=== PATIENT | female | born 1970 | race Caucasian/White ===

== ENCOUNTER 2017-07-09 17:36 | Emergency (ER) | payer OTHER ==
[~2017-07-09] VITALS: Ht 144.8 cm; Wt 60.8 kg
[2017-07-09 17:55] VITALS: Ht 144.8 cm; Wt 60.8 kg
[2017-07-09 19:34] VITALS: BP 141/71
== END 2017-07-09 19:34 | disposition home or self-care (01) ==
LOC: ED 17:36
DX: L02.211 Cutaneous abscess of abdominal wall (principal)

== ENCOUNTER 2017-07-11 08:57 | Emergency (ER) | payer OTHER ==
[~2017-07-11] VITALS: Ht 152.4 cm; Wt 59.9 kg
[2017-07-11 09:06] VITALS: Ht 152.4 cm; Wt 59.9 kg
[2017-07-11 09:56] VITALS: BP 112/60
== END 2017-07-11 09:56 | disposition home or self-care (01) ==
LOC: ED 08:57
DX: Z48.01 Encounter for change or removal of surgical wound dressing (principal); E11.9 Type 2 diabetes mellitus without complications; Z90.5 Acquired absence of kidney

== ENCOUNTER 2017-07-13 08:49 | Emergency (ER) | payer OTHER ==
[~2017-07-13] VITALS: Ht 152.4 cm; Wt 59.9 kg
[2017-07-13 08:56] VITALS: Ht 152.4 cm; Wt 59.9 kg
[2017-07-13 10:54] VITALS: BP 121/81
== END 2017-07-13 10:30 | disposition home or self-care (01) ==
LOC: ED 08:49
DX: Z48.01 Encounter for change or removal of surgical wound dressing (principal); E11.9 Type 2 diabetes mellitus without complications; R03.0 Elevated blood-pressure reading, without diagnosis of hypertension

== ENCOUNTER 2018-09-20 06:48 | Inpatient (IN) | payer OTHER ==
[~2018-09-20] VITALS: Ht 165.1 cm; Wt 58.1 kg
--- NOTE | 2018-09-20 07:12 | NUR ---
PT HERE BY SELF FOR ABD PAIN TO BUQ SINCE SUNDAY. PT STS SHE HAS HAD A FEVER AND COUGH SINCE TODAY. PT NOW REPORTS BODY ACHES ALSO SINCE SUNDAY. DENIES HAVING HAD THE FLU VACCINE.
--- NOTE | 2018-09-20 08:12 | NUR ---
FEVER DEC. PT GIVEN LIGHT SHEET. ON FULL MONTIORS. CALL LIGHT IN REACH.
[2018-09-20 08:21] LABS: BASOPHIL % 0.4 % (0-2); PLATELET COUNT 161 x10^3mcL (130-400); RED CELL DISTRIBUTION WIDTH 13.6 % (11.5-14.5)
[2018-09-20 08:36] LABS: CALCIUM 9.2 mg/dL (8.5-10.1); CARBON DIOXIDE 25.2 mmol/L (21-32); CHLORIDE SERUM 98 mmol/L (98-107); CREATININE SERUM 0.9 mg/dL (0.6-1.0); GFR1 > 60 mL/min; GLUCOSE SERUM 315 mg/dL (74-106); POTASSIUM SERUM 4.2 mmol/L (3.5-5.1); SODIUM SERUM 135 mmol/L (136-145)
[2018-09-20 08:41] LABS: ALBUMIN 3.4 g/dL (3.4-5.0); ALKALINE PHOSPHATASE 126 U/L (46-116); ALT/SGPT 19 U/L (14-59); AST/SGOT 8 U/L (15-37); BILIRUBIN TOTAL 0.57 mg/dL (0.20-1.00); TOTAL PROTEIN, SERUM 7.8 g/dL (6.4-8.2)
[2018-09-20 09:15] LABS: microscopic required? YES; urine erythrocyte 3+ (NEGATIVE)
--- NOTE | 2018-09-20 09:30 | NUR ---
SLEEPING, EASY TO AROUSE AWAKE; BREATHING UNLABORED
[2018-09-20] MEDS ORDERED: METFORMIN HYDR500 M1 PO (10:09)
--- NOTE | 2018-09-20 10:18 | NUR ---
REPORT GIVEN TO RAMA FELIX M/S LALITO
--- NOTE | 2018-09-20 10:31 | NUR ---
PATIENT ARRIVED VIA [facility] WITH 2 ER TECHS. PATIENT ABLE TO AMBULATE TO BED WITHOUT ASSITANCE. PATIENT GREENLAND[place] SPEAKING ONLY. ORIENTED TO ROOM AND CALL LIGHT SYSTEM.
[2018-09-20 11:02] VITALS: BP 115/70
[2018-09-20 11:56] VITALS: BP 120/68
--- NOTE | 2018-09-20 12:10 | NUR ---
BG RESULT WAS 248, 6 UNITS REGULAR INSULIN GIVEN PER SLIDING SCALE. COSIGNED BY STEPHEN STARKEY. PATIENT FAMILY AT BEDSIDE, PATIENT STATED SHE DOES NOT CHECK HER BLOOD SUGAR AT HOME. TAUGHT PATIENT AND FAMILY IMPORTANCE OF CHECKING SUGAR REGULARLY PART OF DM MANAGEMENT. PATIENT HAD NO COMPLLAINTS AT THIS TIME. CALL LIGHT WITHIN REACH
[2018-09-20 13:25] VITALS: Ht 165.1 cm; Wt 58.1 kg
--- NOTE | 2018-09-20 15:16 | NUR ---
PATIENT COMPLAINING OF NAUSEA AND FEELING COLD. PATIENT TEMP WAS 101.6. ADMINISTERED TYLENOL PRN FOR TEMP. SPOKE WITH ASSISTANT ATTORNEY GENERAL AND RECIVED ORDER FOR ZOFRAN IV.
--- NOTE | 2018-09-20 15:48 | NUR ---
PATIENT VOMITED X1 AFTER GETTING TYLENOL PO. RECEIVED ORDER FROM [employer]IRE [employer] CULTURE TEACHER FOR TORADOL 15MG IV
[2018-09-20 15:57] VITALS: BP 167/76
--- NOTE | 2018-09-20 16:03 | NUR ---
ADMINISTERED TORADOL PER ORDER. PATIENT NOT BEING COMPLIANT WITH COOLING MEASURES. CHARGE NURSE EXPLAINED TO PATIENT IN [place] BUT PATIENT CONTINUES TO NOT BE COMPLIANT. CALL LIGHT WITHIN REACH
--- NOTE | 2018-09-20 16:51 | NUR ---
BD RESULT WAS 233. 6UNITS INSULIN GIVEN PER SLIDING SCALE. PATIENT COMPLAINING OF FEELING HOT. NOW MORE COMPLIANT WITH COOLING MEASURES. PROVIDED ADDITIONAL COLD COMPRESSES TO CHEST AND HEAD. CALL LIGHT WITHIN REACH
--- NOTE | 2018-09-20 18:24 | NUR ---
PATIENT RESTING COMFORTABLY, TEMP RECHECKED AND FOUND TO BE 98.1. EXPLAINED TEMPURATURE AND INTERVENTIONS TO DAUGHTER. DAUGHTER TRANSLATED TO PATIENT IN [place]. CALL LIGHT WITHIN REACH
--- NOTE | 2018-09-20 19:05 | NUR ---
RECEIVED PT FROM PREVIOUS SHIFT NURSE. PT AOX4. DENIES LEIGH/DIZZINESS. SPEECH CLEAR, ANSWERS QUESTIONS APPROP. MED SURG PT, DENIES CP/PRESSURE. DENIES SOB/DIFFICULTY BREATHING, ON RA. IV TO RFA, INTACT AND PATENT. BED IN LOWEST POSITION. CALL LIGHT WITHIN REACH. WILL CONTINUE TO MONITOR.
[2018-09-20 20:48] VITALS: BP 102/56
[2018-09-20 20:50] VITALS: BP 102/56
--- NOTE | 2018-09-21 02:00 | NUR ---
PT RESTING IN BED. RR EVEN AND UNLABORED. IN NO ACUTE DISTRESS. CALL LIGHT WITHIN REACH. BED IN LOWEST POSITION. WILL CONTINUE TO MONITOR.
[2018-09-21 05:38] VITALS: BP 100/62
--- NOTE | 2018-09-21 07:27 | NUR ---
RECEIVED HAND OFF REPORT FROM YESENIA STARKEY. FOUND PATIENT RESTING IN BED WITH NO COMPLAINTS. ORIENTED TO CALL LIGHT SYSTEM, CALL LIGHT WITHIN REACH. WILL CONTINUE TO MONITOR
[2018-09-21 07:40] VITALS: BP 117/69
--- NOTE | 2018-09-21 09:46 | NUR ---
PATIENT COMPLAINING OF FEELING HOT, TEMP ORALLY WAS 101.0. TYLENOL PO ADMINSITERED, COLD COMPRESSES GIVEN TO PATIENT FOR HEAD AND ABD, BLANKET REMOVED AND ROOM AIR CON LOWERED. CALL LIGHT WITHIN REACH WILL REASSESS
--- NOTE | 2018-09-21 10:51 | NUR ---
REASSESSED PATIENT, TEMP NOW 99.7, PATIENT STATED SHE WISHES TO REST. CALL LIGHT WITHIN REACH, WILL CONTINUE TO MONITOR
--- NOTE | 2018-09-21 12:04 | NUR ---
PATIENT COMPLAINING OF PAIN TO HEAD AND ABD ADMINISTERD TORADOL AND ZOFRAN PER PRN ORDER. BG RESULT WAS 248, 6 UNITS REGULAR INSULIN ADMINSITERED PER SLIDING SCALE WITH GIANNI STARKEY COSIGN. PATIENT FAMILY NOW AT BEDSIDE, PATIENT HAD QUSTIONS ABOUT IMAGING FOR HER HEAD AND KIDNEY. WILL INFORM PEANUT PICKER OF PATIENT CONCERNS. CALL LIGHT WITHIN REACH FAMILY AT BEDSIDE
--- NOTE | 2018-09-21 13:19 | NUR ---
PATIENT PREPARED FOR DISCHARGE, ORDER PRESENT. PATIENT GIVEN COPY OF PRESCRIPTIONS, PHOTOS AND PAPERWORK. REVIED CHART WITH PATIENT AND DISCHARGE INSTRUCTION. ANSWERED QUESTIONS THAT AROSE, INFORMED OF FOLLOWUP APPOINTMENT. PATIENT RECEPTIVE OF TEACHING. NO ADDITIONAL QUESTIONS. IV FROM LEFT AC REMOVED, CATH INTACT. RON BE ESCORTED PATIENT OFF UNIT WITH ALL BELONGINGS
--- NOTE | 2018-09-21 14:30 | NUR ---
PATIENT SITTING AT SIDE OF BED WITH FAMILY AT [facility]. ADMNIISTERED MEDICATION PER MAR. INFORMED FAMILY THAT PATIENT CANNOT HAVE OUTSIDE FOOD WITHOUT PHYCISION ORDER AND PATIENT SUGARS HAVE BEEN TOO HIGH. PATIENT PROVIDED WITH SUGAR FREE JELLO. PATIENT HAD NO PAIN AT THSI TIME. CALL LIGHT WITHIN REACH
--- NOTE | 2018-09-21 17:04 | NUR ---
PATIENT RESTING AT THIS TIME. AWOKE TO NURSE ENTERING ROOM. BG RESULT WAS 288, 9UNITS INSULIN GIVEN PER SLIDING SCALE, JOSE ANTONIO STARKEY COSIGN. PATIENT HAD NOT COMPLAINTS. CALL LIGHT WITHIN REACH
[2018-09-21 18:05] VITALS: BP 134/68
--- NOTE | 2018-09-21 19:30 | NUR ---
PT RECEIVED A/O X4, [place] SPEAKING, ABLE TO MAKE NEEDS KNOWN. MED-SURG, DENIES CP/PRESSURE. PULSES PALPABLE, NO EDEMA PRESENT. BREATHING IS EVEN AND UNLABORED ON RA, NO RESP DISTRESS NOTED. ABD SOFT AND NONDISTENDED, DENIES N/V. VOIDS FREELY, BRP. AMBULATORY WITH STEADY GAIT. SKIN IS WARM AND DRY, INTACT. PT DENIES HAVING ANY PAIN AT THIS TIME. IVF INFUSING WELL TO RFA, SITE WNL. BED IN LOWEST SETTING, SIDE RAILS UP X2, CALL LIGHT WITHIN REACH. NO ACUTE DISTRESS NOTED. WILL CONT TO MONITOR.
[2018-09-21 20:46] VITALS: BP 122/66
--- NOTE | 2018-09-21 21:35 | NUR ---
PT C/O 11/19 HEADACHE, PRN TYLENOL GIVEN ORDERED. NO ACUTE DISTRESS NOTED. CALL LIGHT WITHIN REACH. WILL CONT TO MONITOR.
[2018-09-22 05:51] VITALS: BP 126/70
--- NOTE | 2018-09-22 06:34 | NUR ---
PT SLEPT WELL THROUGHOUT THE EVENING. BREATHING IS EVEN AND UNLABORED, NO RESP DISTRESS NOTED. PT DENIES HAVING ANY PAIN AT THIS TIME. IVF INFUSING WELL, SITE WNL. NO ACUTE CHANGES ENCOUNTERED DURING SHIFT. ALL NEEDS MET AND ANTICIPATED. CALL LIGHT WITHIN REACH. WILL ENDORSE CARE TO AM NURSE.
[2018-09-22 06:54] LABS: BASOPHIL % 0.5 % (0-2); PLATELET COUNT 151 x10^3mcL (130-400); RED CELL DISTRIBUTION WIDTH 13.1 % (11.5-14.5)
[2018-09-22 07:00] LABS: CALCIUM 8.2 mg/dL (8.5-10.1); CARBON DIOXIDE 25.8 mmol/L (21-32); CHLORIDE SERUM 106 mmol/L (98-107); CREATININE SERUM 0.7 mg/dL (0.6-1.0); GFR1 > 60 mL/min; GLUCOSE SERUM 226 mg/dL (74-106); POTASSIUM SERUM 4.3 mmol/L (3.5-5.1); SODIUM SERUM 141 mmol/L (136-145)
[2018-09-22 07:05] VITALS: BP 115/66
--- NOTE | 2018-09-22 07:17 | NUR ---
PT IN NO ACUTE DISTRESS. CONTINUITY OF CARE ENDORSED TO TIMOTHY STARKEY. ALL QUESTIONS AND CONCERNS ADDRESSED.
--- NOTE | 2018-09-22 07:30 | NUR ---
PT IS AAOX4. DENIES H/A AND DIZINESS. RESP EVEN AND UNLABORED. LUNG SOUNDS CTA THROUGH OUT ALL LOBES. ON R/A. NO COUGH OR SOB NOTED. NORMAL S1S2 NOTED. ABDOMEN SOFT, NONDISTENDED, NONTENDER. BOWEL SOUNDS ACTIVE X 4 QUADS. DENIES N/V/D. SKIN CDI. PERIPHERAL PULSES PALPABLE. NO EDEMA NOTED. DENIES NUMBNESS OR TINGLING. IVF RUNNING TO RFA. SITE WNL, NO S/S OF INFECTION OR INFILTRATION NOTED. DENIES FLANK PAIN AND PAIN UPON URINATION AT THIS TIME. CALL LIGHT WITHIN REACH. BED IN LOWEST POSITION.
--- NOTE | 2018-09-22 08:40 | NUR ---
PT IS RESTING IN BED WATCHING TV. RESP EVEN AND UNLABORED. NO DISTRESS NOTED. DENIES PAIN. DUE MEDS RECEIVED AND TOLERATED WELL. CALL LIGHT WITHIN REACH.
--- NOTE | 2018-09-22 12:06 | NUR ---
PT IS SITTING UP IN BEDSIDE CHAIR. RESP EVEN AND UNLABORED. BLOOD SUGAR 337, 12 UNITS OF INSULIN GIVEN. DUE MED GIVEN. PT DENIES PAIN. CALL LIGHT WITHIN REACH.
--- NOTE | 2018-09-22 12:18 | NUR ---
LAB REPORTED THAT THE PT URINE CX IS POSITIVE FOR MDRO ECOLI. PAGED MILA HSIEH BEEF CATTLE FARM WORKER TO MAKE HER AWARE. AWAITING CALL BACK.
[2018-09-22] MEDS ORDERED: LEVAQUIN750 MG PO (12:25)
[2018-09-22] MEDS ORDERED: LEVOFLOXACIN500 M1 PO (13:31)
[2018-09-22 13:33] VITALS: BP 127/69
[2018-09-22 13:34] VITALS: BP 127/69
--- NOTE | 2018-09-22 14:15 | NUR ---
PT DISCHARED TO HOME IN NO DISTRESS. DISCHARGE INSTRUCTIONS REVIEWED. ALL FORMS SIGNED AND PLACED IN PT'S CHART. RX GIVEN TO PT. IV CATH TO RFA REMOVED INTACT, SITE WNL. COVERED WITH GAUZE AND BANDAID. VS: 97.6, 72, 18, 127/69, 99% ON R/A. PT DENIES PAIN AND DISCOMFORT AT DISCHARGE. ALL PERSONAL BELONGINGS TAKEN HOME.
== END 2018-09-22 14:15 | disposition home or self-care (01) | DRG 720 ==
LOC: ED 06:48 → MU 09:51
PROVIDERS: Emergency Medicine; ADMIT Internal Medicine
DX: A41.9 Sepsis, unspecified organism (principal); N39.0 Urinary tract infection, site not specified; E11.9 Type 2 diabetes mellitus without complications; B96.20 Unspecified Escherichia coli [E. coli] as the cause of diseases classified elsewhere; Z16.24 Resistance to multiple antibiotics; Z79.84 Long term (current) use of oral hypoglycemic drugs; Z90.5 Acquired absence of kidney
CPT/HCPCS: 82962; G0378; J0692; J0696; J1885; J2405; J3490; J7030